=== PATIENT | male | born 1965 | race Caucasian/White ===

== ENCOUNTER 2022-12-01 11:08 | Day surgery (SDC) | payer OTHER ==
[~2022-12-01] VITALS: Ht 147.3 cm; Wt 50.3 kg
[2022-12-01 12:01] LABS: BASOPHILS # (AUTO) 0.1 K/uL (0.00-0.22); BASOPHILS % (AUTO) 1.7 % (0.0-2.0); EOSINOPHILS # (AUTO) 0.1 K/uL (0-0.4); EOSINOPHILS % (AUTO) 1.1 % (0.0-4.0); HEMATOCRIT 44.2 % (36-52); HEMOGLOBIN 14.5 g/dL (12.0-18.0); LYMPHOCYTES # (AUTO) 2.9 K/uL (2.0-11.5); LYMPHOCYTES % (AUTO) 44.8 % (20.5-51.1); MEAN CORPUSCULAR HEMOGLOBIN 30 pg (27-31); MEAN CORPUSCULAR HGB CONC 33 g/dL (33-37); MEAN CORPUSCULAR VOLUME 91.6 fL (80-94); MONOCYTES # (AUTO) 0.5 K/uL (0.8-1.0); NEUTROPHILS # (AUTO) 2.9 K/uL (1.8-7.7); NEUTROPHILS % (AUTO) 44.4 % (42.2-75.2); PLATELET COUNT (AUTO) 236 K/uL (140-450); RED BLOOD CELL COUNT(AUTO) 4.83 MIL/uL (4.20-6.10); WHITE BLOOD COUNT (AUTO) 6.5 K/uL (4.8-10.8)
[2022-12-01 12:13] LABS: ALBUMIN 3.4 g/dL (3.4-5.0); ANION GAP 12.2 (8-16); CARBON DIOXIDE 31.3 mmol/L (21-32); POTASSIUM 3.5 mmol/L (3.5-5.1); TOTAL BILIRUBIN 0.4 mg/dL (0.0-1.0)
[2022-12-01] MEDS ORDERED: fentaNYL citrate 0.05 MG/ML VIAL ONE (12:33)
[2022-12-01] MEDS ORDERED: PROPOFOL 200 MG/20 ML VIAL IV ONE (13:15)
[2022-12-01] MEDS ORDERED: LACTATED RINGERS 1,000 ML IV SCH (13:30)
[2022-12-01] MEDS ORDERED: MEPERIDINE 25 MG/ML SYR IVP PRN (13:30)
[2022-12-01] MEDS ORDERED: HYDROmorphone 1 MG/ML AMP IVP PRN (13:30)
[2022-12-01] MEDS ORDERED: ONDANSETRON 4 MG/2 ML VIAL IVP PRN (13:30)
== END 2022-12-01 14:25 | disposition home or self-care (01) ==
LOC: MDS 11:08 → MMU 11:17 → MDS 14:25
PROVIDERS: ATTEND Internal Medicine Gastroenterology
DX: Z12.11 Encounter for screening for malignant neoplasm of colon (principal); K64.9 Unspecified hemorrhoids; E78.00 Pure hypercholesterolemia, unspecified; F41.9 Anxiety disorder, unspecified; Z98.890 Other specified postprocedural states
CPT/HCPCS: 36415; 45378; 71045; 80053; 85025; 93005; J2704; J3010; Q0092